=== PATIENT | male | born 1955 | race Caucasian/White ===

== ENCOUNTER 2022-12-28 10:08 | Emergency (ER) | payer MEDICARE, SELFPAY ==
[2022-12-28 10:13] VITALS: BP 180/100; PULSE 118; RESP 18; TEMP 36.7; O2SAT 99; BMI 29.9
[2022-12-28 10:28] VITALS: PULSE 89
[2022-12-28 12:02] VITALS: PULSE 97; RESP 18; O2SAT 98
--- NOTE | 2022-12-28 12:14 | ED_ITS ---
HPI - General Adult General Chief complaint: Extremity Injury, Upper Stated complaint: UPPER EXTREMITY PAIN, RIGHT ELBOW Time Seen by Provider: 12/28/22 11:04 Source: patient Mode of arrival: walk-in Limitations: no limitations History of Present Illness HPI narrative: Patient is a 67-year-old male who is presenting to the Emergency Room with chief complaint of right elbow pain since Tuesday. Patient has redness, swelling to the superficial aspect of his right elbow, over his olecranon bursa with some localized erythema. No signs of Cellulitis.. Patient does have a history of gout. Patient has had a gout in his wrist and his large toe previousl. Patient's is at bedside. Patient's hypertensive. Patient's nurse practitioner is Sara Meyer. Patient has not seen her since at least May. Patient is due to take lisinopril 40 mg once a day, and Norvasc 10 mg once a day. Patient has no medication at home for his blood pressure, has not try to make an appointment with Sara, has not done anything for his blood pressure since May. Patient denies any type of trauma. Patient does have full range of motion of his right elbow with minimal soreness. Patient has mild to moderate pain once he gets past 90 degrees of flexion at the right elbow. No systemic complaints of fever, chills, nausea or vomiting. Patient's had no blood by, laceration, no trauma to the right elbow. Patient has never had olecranon bursitis before. No other questions. . All systems are negative except as noted/marked. All systems reviewed and otherwise negative. . Nurses note and vital signs reviewed and patient is not hypoxic. General: The patient appears well and in no apparent distress. Patient is resting comfortably on cart. Patient is not toxic, lethargic, or listless Skin: Warm, dry, no pallor noted. There is no rash noted. No petechiae, purpura. Head: Normocephalic, atraumatic Eye: Normal conjunctiva, no drainage, EOMI. PERRL Ears, Nose, Mouth, and Throat: oral mucosa is moist. Nares patent. Mouth without vesicles. Cardiovascular: Regular Rate and Rhythm, no murmur, gallop, rub Respiratory: Patient is in no distress, no accessory muscle use, lungs are clear to auscultation, no wheezing, rales or rhonchi Back: non-tender, no CVA tenderness bilaterally to percussion. No CT LS midline pain GI: soft, no tenderness to palpation, no masses appreciated. No rebound, guarding, or rigidity noted. No flank pain bilateral, No distention Musculoskeletal: Patient has full range of motion of all of the extremities. Patient has full range of motion of his right elbow, moderate pain occurs with flexion of the right elbow past 90 degrees. Before 90 degrees of right elbow flexion, supination, pronation extension, patient has minimal pain with range of motion of the right elbow; no motor, sensory, or focal neurological deficits. Patient has moderate tenderness to palpation right over the olecranon.Patient has localized erythema minimal to the area. Patient does not have circumferential redness. Patient is not displaying signs or symptoms of septic joint at this time. Neurological: A&O x3, normal speech Psychiatric: Cooperative Related Data Previous Rx's Medication Instructions Recorded amlodipine 10 mg tablet (Norvasc) 10 mg PO DAILY #20 tabs 12/28/22 colchicine 0.6 mg capsule 0.6 mg PO ONCE PRN pain #10 caps 12/28/22 hydrocodone 5 mg-acetaminophen 325 1 tab PO Q4H PRN pain #10 tabs 12/28/22 mg tablet indomethacin 50 mg capsule 50 mg PO TID PRN pain #30 caps 12/28/22 lisinopril 20 mg tablet 20 mg PO BID #20 tabs 12/28/22 prednisone 50 mg tablet 50 mg PO DAILY 5 days #5 tabs 12/28/22 Allergies Allergy/AdvReac Type Severity Reaction Status Date / Time No Known Drug Allergies Allergy Verified 12/28/22 10:13 [facility] Social History Smoking status: Current every day smoker Exam Constitutional Vital Signs, click to edit/add: Last Vital Signs Temp 98.1 F 12/28/22 10:13 Pulse 97 H 12/28/22 12:02 Resp 18 12/28/22 12:02 BP 180/100 H 12/28/22 10:13 Pulse Ox 98 12/28/22 12:02 O2 Del Method Room Air 12/28/22 12:02 Course Vital Signs Vital signs: Vital Signs Temperature 98.1 F 12/28/22 10:13 Pulse Rate 118 H 12/28/22 10:13 Respiratory Rate 18 12/28/22 10:13 Blood Pressure 180/100 H 12/28/22 10:13 Pulse Oximetry 99 12/28/22 10:13 Oxygen Delivery Method Room Air 12/28/22 10:13 Temperature 98.1 F 12/28/22 10:13 Pulse Rate 97 H 12/28/22 12:02 Respiratory Rate 18 12/28/22 12:02 Blood Pressure 180/100 H 12/28/22 10:13 Pulse Oximetry 98 12/28/22 12:02 Oxygen Delivery Method Room Air 12/28/22 12:02 Medical Decision Making MDM Narrative Medical decision making narrative: Patient has most likely right elbow olecranon bursitis. Patient may have gout to the right elbow. Patient be treated both with gout and olecranon bursitis treatment. Patient will continue using ice, anti-inflammatories. Patient is given colchicine in case her might be gouty arthritic component. Patient is given pain medication and steroids. Patient understands importance of following up with PCP, patient was given refill of medications of his lisinopril and Norvasc. Patient had education on the risk of hypertension, stroke risk, and if he continues medical noncompliance with elevated blood pressure, patient's future will most likely include significant cardiovascular complications. Patient understands this. No questions at discharge. Patient very thankful for blood pressure medication refills. Patient understands importance of ice. Patient was given education on septic arthritis just for educational purposes only. Patient and had education on septic joint for 5 minutes in the room. Patient is not displaying signs or symptoms of septic joint at this time. Patient was given symptoms of septic joint and water return to the Emergency Room immediately for reevaluation. Patient and his understand this. Discharge Plan Discharge Chief Complaint: Extremity Injury, Upper Clinical Impression: Olecranon bursitis of right elbow, Medical non-compliance, Hypertension Patient Disposition: Home, Self-Care Condition: Fair Prescriptions / Home Meds: New colchicine 0.6 mg capsule 0.6 mg PO ONCE MDD 3 tabs max daily PRN (Reason: pain) Qty: 10 0RF Rx Instructions: Take 1 tab every hour for right elbow pain/gout; MAX 3 tabs daily indomethacin 50 mg capsule 50 mg PO TID PRN (Reason: pain) Qty: 30 0RF Rx Instructions: administer with food or milk hydrocodone-acetaminophen 5-325 mg tablet 1 tab PO Q4H PRN (Reason: pain) Qty: 10 0RF prednisone 50 mg tablet 50 mg PO DAILY 5 Days Qty: 5 0RF lisinopril 20 mg tablet 20 mg PO BID Qty: 20 0RF amlodipine [Norvasc] 10 mg tablet 10 mg PO DAILY Qty: 20 0RF Instructions: Elbow Bursitis (ED), Gout (ED), Hypertension (ED), Septic Arthritis (DC) Additional Instructions: Ice 20 minutes on, 20 minutes off. He needs a follow-up with her PCP routinely and take her blood pressure and hypertension seriously. You are extremely high risk for heart attack and stroke a few continue medical noncompliance with her blood pressure medication. We are treating potential gout and olecranon bursitis. Education at bedside was done and septic joint. He did not have signs or symptoms of septic joint at this time. Discharge instructions were given to for educational purposes only since we discussed septic joint at bedside. Follow-up with PCP for further evaluation. Orthopedic surgery has been referred to you. Stand Alone Forms: Portal Instructions Referrals: Sara Meyer [Primary Care Provider] - 1 week
== END 2022-12-28 12:18 | disposition home or self-care (01) ==
PROVIDERS: Emergency Provider Emergency Medicine; PCP Nurse Practitioner
DX: M70.21 Olecranon bursitis, right elbow (principal); M10.9 Gout, unspecified; I10 Essential (primary) hypertension; Z91.199 Patient's noncompliance with other medical treatment and regimen due to unspecified reason; Z79.899 Other long term (current) drug therapy; F17.210 Nicotine dependence, cigarettes, uncomplicated
CPT/HCPCS: 99283

== ENCOUNTER 2023-01-10 09:30 | Outpatient (OUT) | payer MEDICARE, SELFPAY ==
[2023-01-10 09:56] LABS: Anion Gap 15.6; BUN Creatinine Ratio 18.2; Calcium 8.7 mg/dL (8.5-10.1); Chloride 101 mmol/L (98-107); Estimated GFR (African America >60 (>=60); Estimated GFR (Non-African Ame >60 (>=60); Glucose 103 mg/dL (74-106); Potassium 3.6 mmol/L (3.5-5.1); Sodium 139 mmol/L (136-145)
== END 2023-01-10 09:31 | disposition home or self-care (01) ==
PROVIDERS: PCP Nurse Practitioner; Visit Provider Nurse Practitioner
DX: I10 Essential (primary) hypertension (principal)
CPT/HCPCS: 36415; 80048

== ENCOUNTER 2025-02-14 10:37 | Outpatient (OUT) | payer MEDICARE, SELFPAY ==
[2025-02-14 11:16] LABS: Hematocrit 44.3 % (42.0-54.0); Hemoglobin 15.3 g/dL (14.0-18.0); Immature Granulocytes Abs Auto 0.02 10^3/uL (0.00-0.03); Immature Granulocytes Pct Auto 0.2 % (0.0-0.5); Lymphocytes Absolute Auto 2.0 10^3/uL (1.2-3.8); Mean Corpuscular HGB Conc 34.5 g/dL (29.9-35.2); Mean Corpuscular Hemoglobin 30.4 pg (25.9-34.0); Mean Corpuscular Volume 88.1 fL (80.0-94.0); Platelet Count 217 10^3/uL (150-450); Red Blood Count 5.03 10^6/uL (4.70-6.10); White Blood Count 8.2 10^3/uL (4.0-11.0)
[2025-02-14 11:30] LABS: Glucose Urine UA NEGATIVE (NEGATIVE)
[2025-02-14 11:42] LABS: Alanine Aminotransferase 29 U/L (16-63); Albumin Globulin Ratio 1.2; Albumin Level 4.0 g/dL (3.4-5.0); Alkaline Phosphatase 90 U/L (46-116); Anion Gap 14.9; Aspartate Amino Transferase 15 U/L (15-37); Blood Urea Nitrogen 18.0 mg/dL (7.0-18.0); Calcium 8.8 mg/dL (8.5-10.1); Carbon Dioxide 25.4 mmol/L (21.0-32.0); Chloride 104 mmol/L (98-107); Estimated GFR (African America >60 (>=60 mL/min/1.73m^2); Estimated GFR (Non-African Ame >60 (>=60 mL/min/1.73m^2); Globulin 3.4 g/dL; Glucose 103 mg/dL (74-106); Potassium 4.3 mmol/L (3.5-5.1); Sodium 140 mmol/L (136-145); Total Protein 7.4 g/dL (6.4-8.2)
[2025-02-14 12:00] LABS: Microalbum Creatinine Ratio Ur 5.3 mg/g (0.0-29.9)
== END 2025-02-14 10:38 | disposition home or self-care (01) ==
LOC: LAB 10:38
PROVIDERS: PCP Nurse Practitioner; Visit Provider Nurse Practitioner
DX: I10 Essential (primary) hypertension (principal); Z72.0 Tobacco use
CPT/HCPCS: 36415; 80053; 81003; 82043; 82570; 85025